=== PATIENT | female | born 1970 | race Caucasian/White ===

== ENCOUNTER → 2016-09-23 | Outpatient (CLI) | payer OTHER ==
[~2016-09-23] VITALS: Ht 157.5 cm; Wt 76.0 kg
[~2016-09-23] MED LIST: AMBIEN 10 MG TA10 MG PO; APAP650 PO; ATIVAN1 MG; ATIVAN1 MG PO; B-COMPLEX-VITA1 EACH PO; BACLOFEN; BACLOFEN 10MG T10 M1 PO; BLOOD PRESSURE MED; BUTALB-APAP-CA1 EACH PO; BUTALBITAL COM1 EAC1 PO; CALCIUM OYSTER500 MG; CIPROFLOXACIN500 M1 PO; CLONAZEPAM; CLONAZEPAM 0.50.5 M1 PO; CLONAZEPAM 1 MG1 M1 PO; COLACE100 MG PO; CYMBALTA30 MG PO; CYMBALTA60 MG PO; ESTRACE2 MG PO; ESTRODIAL PO; FENTANYL; FIORICET-COD 51 EACH PO; HYDROCODON-ACE1 EAC5 PO; INDERAL60 MG PO; KEFLEX500 MG PO; LORAZEPAM 1 MG T1 M1 PO; MAGNESIUM GLUC500 M1 PO; MULTI-VITAMIN1 EAC2 PO; MULTIVITAMINS PO; NAPROSYN500 MG PO; NEURONTIN 400M400 M2 PO; NORFLEX100 MG; ONE-A-DAY WOMENS; OXYCODONE-ACET1 EACH PO; OXYCONTIN10 M1; PERCOCET 5-3251 EACH PO; PHILLIPS' LAXA100 MG; PREDNISONE 20 M20 MG PO; PRILOSEC 20 MG20 MG PO; SKELAXIN 800 M800 M1; SYMBYAX 6-25 M1 EACH; TIZANIDINE HCL2 M1 PO; TOPAMAX 100 MG100 MG PO; TOPAMAX50 MG; TOPROL XL25 MG PO; TRAMADOL 50 MG50 MG; TRAMADOL PO; ULTRACET TABLE1 EACH; VALIUM2 MG PO; VALIUM5 MG; VALIUM5 MG PO; VICODIN 5-5001 EACH; VICODIN PO; VITAMIN D-32000 UNIT PO; VITAMINC500 PO; WOMEN'S MULTI1 EACH; ZANAFLEX4 M1; ZOFRAN ODT4 MG PO; ZOLOFT100 MG; testosterone cream
[2016-09-23 13:46] VITALS: BP 140/101
== END | disposition home or self-care (01) ==
LOC: PAIN 06:46
DX: G80.1 Spastic diplegic cerebral palsy (principal); M54.12 Radiculopathy, cervical region; G44.89 Other headache syndrome; Z98.890 Other specified postprocedural states; V89.2XXD Person injured in unspecified motor-vehicle accident, traffic, subsequent encounter

== ENCOUNTER → 2016-10-21 | Outpatient (CLI) | payer OTHER ==
[~2016-10-21] VITALS: Ht 157.5 cm; Wt 74.8 kg
--- NOTE | ~2016-10-21 | HPC ---
[facility] [employer] [place] [address] PAIN MANAGEMENT CONSULTATION Name: SUJEY WILLIAM Room #: REG Benjie Pagan#: [id number] Admission: 10/21/16 Attend Phys: Clifford Kunz MD Discharge: Date of : 72 Report #: [id number] THIS REPORT FOR: //name// CC: Aurelio Kunz DATE OF SERVICE: 10/21/2016 Follow up visit for cervical radiculopathy as well as spasticity and movement disorder related to cerebral palsy. The delightful patient returns to pain clinic today with severe pain, scoring it as an 8-9/10. Pain is in her neck, radiates through her right shoulder and down into her arms, right worse than left. Pain follows a C6-C7 distribution. We ordered an MRI, but because of significant motion artifact due to her movement disorder, it has not been all that helpful. It does show that she has some changes associated with her anterior cervical diskectomy and fusion. We discussed that if she had not responded and improved, we can proceed with a cervical epidural injection today under fluoroscopic guidance. In addition to the injection, she has been taking some Fioricet at night, this has helped quite a bit with her sleep. I felt the caffeine in Fioricet might keep her up, but it does not seem to have done so and the analgesia has been gratefully accepted. We will continue her on this low dose of medication. PHYSICAL EXAMINATION: This is a delightful 46-year-old pleasant and always outgoing. Her movement disorder is immediately evident with neck and arms and lower extremities. Blood pressure 123/83, heart rate is 91, and BMI is 30.1. Neck is painful in all range of motion, flexion, extension, rotation, and wpgx-jx-lfre tilt. She has tenderness located along the spine and there is a positive Spurling's into the right arm. Deep tendon reflexes are diminished throughout the upper and lower extremities. There is no hyperreflexia. Weakness is noted in the right arm deltoid and biceps function consistent with C5. IMPRESSION: 1. Cervical radiculopathy, C6 distribution bilateral, worse on the right than the left. 2. 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 Management of intrathecal infusion pump. She is not due for a refill at this time, but I did interrogate her pump and we will consider adding additional fentanyl in a followup visit. PROCEDURE: Cervical epidural injection under fluoroscopic guidance. [address] [address] PAIN MANAGEMENT CONSULTATION Name: SUJEY WILLIAM Room #: REG CLI Latasha#: [id number] Admission: 10/21/16 Attend Phys: Clifford Kunz MD Discharge: Date of : 72 Report #: [id number] PROCEDURE NOTE: She was taken to the fluoroscopic suite, placed prone, skin prepped with ChloraPrep. Skin anesthetized over the C6-C7 interspace. A 20-gauge Tuohy epidural needle was advanced in the epidural space in the first attempt with loss of resistance. There was no blood or CSF aspirated. 1 mL of Omnipaque injected with good epidurogram achieved. This was then followed by 4 mL of 0.5% lidocaine mixed with 80 mg triamcinolone. She tolerated the procedure well and was observed in recovery room for about 30 minutes before discharge. There were no complications. Follow up visit planned as needed. I have ordered an early refill for her intrathecal infusion pump and an increase the fentanyl from her current concentration of 225 mcg added to 1000 mcg of baclofen. As we add this additional medication, we will increase the fentanyl dose by roughly 25%. Hopefully, this will also provide additional relief for her neck pain. <ELECTRONICALLY SIGNED> By: Clifford Kunz MD 10/25/16 1724 1627 1747 Clifford Kunz MD /nt
[2016-10-21 13:22] VITALS: BP 123/86
== END | disposition home or self-care (01) ==
LOC: PAIN 11:11
DX: M54.12 Radiculopathy, cervical region (principal); G80.1 Spastic diplegic cerebral palsy; Z88.8 Allergy status to other drugs, medicaments and biological substances; Z98.890 Other specified postprocedural states

== ENCOUNTER → 2016-11-04 | Outpatient (CLI) | payer OTHER ==
[~2016-11-04] VITALS: Ht 157.5 cm; Wt 73.8 kg
--- NOTE | ~2016-11-04 | HPC ---
[facility] [address] [place] [address] PAIN MANAGEMENT CONSULTATION Name: SUJEY WILLIAM Room #: REG [facility]#: [id number] Admission: 11/04/16 Attend Phys: Clifford Kunz MD Discharge: Date of : 72 Report #: [id number] THIS REPORT FOR: //name// CC: Aurelio Kunz DATE OF SERVICE: 11/04/2016 DATE OF REGISTRATION: 11/04/2016 Followup visit for chronic intractable pain and spasticity. The patient was recently in the clinic and agreed to increase her fentanyl and her intrathecal infusion pump. I have done so by ordering 20 mL of higher concentration of fentanyl along with her baclofen at the same dose. This will essentially raise her dose by about 15% in fentanyl and we will refill her intrathecal infusion pump. Procedure refill was discussed with the patient and how we would recalculate this and she is pleased that we are doing so and anxious to go forward. IMPRESSION: Spasticity and chronic intractable back pain. PROCEDURE: Refill and readjust medication, reprogramming session. Skin was prepped with ChloraPrep. Skin anesthetized and a 22-gauge non-coring needle advanced in the intrathecal pump. Old medication was removed. A 24 mL was removed and I decanted 4 mL to leave a total volume of 20 mL. This was then mixed with 20 mL of new medication with a higher concentration of fentanyl. The resulting concentrations are baclofen 1000 mcg/mL, fentanyl 275 mcg/mL. Reprogramming of the same dose of baclofen at 350 mg per day. We will increase her fentanyl by about 15%. Bridge bolus was performed as well. She will get her new medication in about 1-1/2 days. No new medications were ordered. Reprogramming session copy was provided to the patient including explanation of her bridge bolus. Her next refill is scheduled for 02/17/2017 or sooner. By: 1513 1530 Clifford Kunz MD /nt
[2016-11-04 14:00] VITALS: BP 134/89
== END | disposition home or self-care (01) ==
LOC: PAIN 07:11
DX: Z45.1 Encounter for adjustment and management of infusion pump (principal); G89.29 Other chronic pain

== ENCOUNTER → 2017-05-30 | Outpatient (CLI) | payer OTHER ==
[~2017-05-30] VITALS: Ht 157.5 cm; Wt 76.3 kg
[~2017-05-30] MED LIST changes: +EFFEXOR XR75 MG PO; +IBUPROFEN 200200 M1 PO; +MIRALAX17 GM PO; +SINGULAIR 10 MG10 M1 PO; +ZANTAC 150MG T150 MG PO
--- NOTE | ~2017-05-30 | HPC ---
[facility] [place] [address] PAIN MANAGEMENT CONSULTATION Name: SUJEY WILLIAM Room #: REG RADHA Pagan#: [id number] Admission: 05/30/17 Attend Phys: Kwan Mitchell DO Discharge: Date of : 71 Report #: [id number] THIS REPORT FOR: //name// CC: Aurelio Mitchell The patient is a very pleasant 47-year-old female being treated for spasticity secondary to cerebral palsy requiring intrathecal pump management. She was last seen in the pain clinic on 02/10/2017. She is a patient of Dr. Clifford Kunz. She has a 40 mL intrathe[address] pump in place. I am seeing her today as her pump has started to alarm. Unfortunately, she presents to the pain clinic today stating that she feels like she is going through some withdrawal noting some increase in spasticity in her neck and shoulder pain. Rates the pain as a 7 on a VAS. PHYSICAL EXAMINATION: Otherwise shows a 47-year-old female with CP. BMI is 30.8 kilograms per meter squared. Vital signs stable as noted in the EMR. Does have a little choreoathetoid movement of her neck. Subjective spasticity in neck, shoulder and arms. Uses a walker for balance. Discussion with the patient today about therapeutic options. We interrogated her pump, which showed that she should have 0.9 mL of intrathecal fluid left. I was concerned that the pump had defaulted to its basal rate. It does not appear this is the case; however, we do note that with the [employer]onic intrathecal pumps they do tend to deliver a little lower rate near the end of their fill cycle. With this histories in mind, we elected to refill the pump today and not change the rate if, however, in 24-48 hours she still has some symptoms of increased spasticity and neck and shoulder tightness, we will have her follow up with Dr. Clifford Kunz for consideration for intrathecal pump adjustment. Last time on 02/10/2017, pump was refilled, the concentrations were changed such that the infusate of baclofen remained the same at approximately 350 mcg a day, but the fentanyl was increased somewhat from 91.6 to 104.91 mcg a day. Today, the intrathecal pump was refilled by the nurse. Curiously while we were expecting 0.9 mL of injectate, we did get 5.5 mL of injectate back. Again historically with the Medtronic pumps, we do tend to see that they "under deliver "a little bit and we do typically see a little more residual fluid. Nonetheless, the pump was refilled in a sterile manner using the Med[employer]onic refill kit. Frequent aspiration showed easy return of the injectate. After all 40 mL (39.[address] Clifford Kunz's request) was injected into the intrathecal pump. The needle was removed, the area was cleansed and Band-Aid applied. Pump was reprogrammed to deliver the current infusate at 349.7 mcg of baclofen a day and 104.9 mcg of fentanyl a day. The new refill date is now 09/14/2017. The patient was discharged in good and stable condition. Follow up with [address] [address] PAIN MANAGEMENT CONSULTATION Name: SUJEY WILLIAM Room #: REG [facility] Latasha#: [id number] Admission: 05/30/17 Attend Phys: Vincent G. Stephen, DO Discharge: Date of : 72 Report #: [id number] Ze in 2 days if intrathecal pump adjustment is required. Otherwise, cancel the appointment and follow up simply as needed for intrathecal pump refill. <ELECTRONICALLY SIGNED> By: Kwan Mitchell DO 06/01/17 0820 1637 2344 Kwan Mitchell DO /nt
[2017-05-30 14:33] VITALS: BP 140/66
== END | disposition home or self-care (01) ==
LOC: PAIN 09:39
DX: Z45.1 Encounter for adjustment and management of infusion pump (principal); G80.1 Spastic diplegic cerebral palsy; Z88.6 Allergy status to analgesic agent; Z79.899 Other long term (current) drug therapy

== ENCOUNTER → 2017-08-01 | Outpatient (CLI) | payer OTHER ==
[~2017-08-01] VITALS: Ht 157.5 cm; Wt 72.1 kg
[~2017-08-01] MED LIST changes: -SINGULAIR 10 MG10 M1 PO; -ZANTAC 150MG T150 MG PO
--- NOTE | ~2017-08-01 | HPC ---
[facility] [place] [address] PAIN MANAGEMENT CONSULTATION Name: SUJEY WILLIAM [id number] Admission: 08/01/17 Attend Phys: Clifford Kunz MD Discharge: Date of : 72 Report #: [id number] THIS REPORT FOR: //name// CC: Aurelio Kunz DATE OF SERVICE: 08/01/2017 The patient returns to pain clinic today complaining of lumbar radiculopathy. Pain is in her back, radiates into her left hip and down into her left thigh and left foot, follows an L4-L5 distribution. She has had epidural injections in the past with good improvement. She also manages with an intrathecal pump. It contains Lioresal and fentanyl. I have agreed to provide her with an increase in her infusion today and bring her back to the pain clinic in 2 days for an epidural injection. MEDICATIONS: Reviewed and reconciled from the electronic medical record. PHYSICAL EXAMINATION: She is pleasant and outgoing. Blood pressure is 142/70, heart rate 81, respirations 14. Her BMI is 29.1. She is able to move independently and walks with a spastic gait. She has good flexion, extension, rotation, and ozfg-vm-lzij tilt with modest extension, reproduction of pain down into the left leg following the L4-L5 distribution. No focal weakness is noted in lower extremities. Sensation is intact. IMPRESSION: Low back pain with radiculopathy following an L4-L5 distribution. RECOMMENDATION: Epidural steroid injection under fluoroscopic guidance. We cannot perform the injection today, but we will see her back in the pain clinic for treatment in 2 days. <ELECTRONICALLY SIGNED> By: Clifford Kunz MD 08/15/17 1711 1721 2240 Clifford Kunz MD /nt
[2017-08-01 14:59] VITALS: BP 142/70
== END ==
LOC: PAIN 06:16
DX: M54.16 Radiculopathy, lumbar region (principal)

== ENCOUNTER → 2017-08-08 | Outpatient (CLI) | payer OTHER ==
[~2017-08-08] VITALS: Ht 157.5 cm; Wt 72.1 kg
--- NOTE | ~2017-08-08 | HPC ---
[facility] [place] [address] PAIN MANAGEMENT CONSULTATION Name: SUJEY WILLIAM Room #: REG [facility] Luciano.#: [id number] Admission: 08/08/17 Attend Phys: Clifford Kunz MD Discharge: Date of : 72 Report #: [id number] THIS REPORT FOR: //name// CC: Aurelio Kunz DATE OF SERVICE: 08/08/2017 Followup visit for lumbar radiculopathy. The patient was seen 1 week ago and she is here today for the epidural injection discuss. She continues to complain of pain today that is fairly severe radiating down the posterior lateral aspect of both legs, worse on the left. Follows an L4-L5 distribution. The patient's history is well documented throughout the record. She has had previous C4-C5 surgery. She has cerebral palsy and spasticity, which has been treated by intrathecal therapy. I have been asked to assist in the management of that condition. She has chronic back pain some of which is myofascial. This pain is clearly radicular in its distribution. PHYSICAL EXAMINATION: VITAL SIGNS: Blood pressure is 138/96, heart rate 95, respirations 20. She moves from sitting to standing. MUSCULOSKELETAL: She walks with a spastic gait. She has positive straight leg raising bilaterally, worse on the left than the right. It follows the anterolateral thigh and the L4-L5 distribution. There is no focal weakness noted throughout the lower extremities and sensation is normal. IMPRESSION: Chronic low back pain with radiculopathy, bilateral, now L4-L5, worse on the left. PROCEDURE: Epidural steroid injection under fluoroscopic guidance. DESCRIPTION OF PROCEDURE: She was taken to the fluoroscopic suite for treatment, placed prone, skin prepped with ChloraPrep. Skin anesthetized over L4-L5. A 20-gauge Tuohy epidural needle was advanced easily into the epidural space with loss of resistance technique. There was no blood or CSF aspirated. 1 mL of Omnipaque was injected. Good spread of dye observed into the epidural space. This was followed by 3 mL of 0.5% lidocaine with 80 mg of triamcinolone. She tolerated the procedure well. She was observed for 45 minutes and then, she was discharged. She will be followed up in the pain clinic on an as needed basis for management of her intrathecal medications. No medications were written for oral use today. [address] [address] PAIN MANAGEMENT CONSULTATION Name: SUJEY WILLIAM Room #: REG CLBenjie Pagan#: [id number] Admission: 08/08/17 Attend Phys: Clifford Kunz MD Discharge: Date of : 72 Report #: [id number] Pain score was 0 at discharge. By: 1612 2355 Clifford Kunz MD /nt
[2017-08-08 14:37] VITALS: BP 138/96
== END | disposition home or self-care (01) ==
LOC: PAIN 07:29
DX: M54.16 Radiculopathy, lumbar region (principal); G89.29 Other chronic pain; G80.9 Cerebral palsy, unspecified; Z98.890 Other specified postprocedural states; Z88.8 Allergy status to other drugs, medicaments and biological substances; Z79.899 Other long term (current) drug therapy

== ENCOUNTER → 2017-09-08 | Outpatient (CLI) | payer OTHER ==
[~2017-09-08] VITALS: Ht 157.5 cm; Wt 74.5 kg
--- NOTE | ~2017-09-08 | HPC ---
[facility] [place] [place] [address] PAIN MANAGEMENT CONSULTATION Name: SUJEY WILLIAM Room #: REG [facility] Luciano.#: [id number] Admission: 09/08/17 Attend Phys: Clifford Kunz MD Discharge: Date of : 72 Report #: [id number] THIS REPORT FOR: //name// CC: Aurelio Kunz DATE OF SERVICE: 09/08/2017 REASON FOR VISIT: Followup visit for management of intrathecal baclofen pump. HISTORY OF PRESENT ILLNESS: The patient is here today with her for refill of her intrathecal pump. Epidural injection provided good relief, provided at her last visit. Her intrathecal pump is Lioresal and fentanyl. She has an ALFREDO of 13 months and will need to have the pump replaced sometime before about May of next year. Today, she reports her pain is 4/10 across her hip and buttocks, but improved. She complains of chronic spasticity, some fatigue and weakness. PHYSICAL EXAMINATION: GENERAL: She is a delightful 47-year-old full of energy and humor. VITAL SIGNS: Her blood pressure is 137/75, heart rate 96, respirations 20, and BMI is 30. She has spasticity of the lower extremities, but this is fairly well controlled with the intrathecal pump. Straight leg raising today is negative. IMPRESSION: 1. Chronic low back pain with radiculopathy, improved following epidural injection. 2. Spasticity secondary to cerebral palsy. PROCEDURE: Refill and reprogram of intrathecal infusion pump. Skin was prepped with ChloraPrep. Skin was anesthetized. A 22-gauge non-coring needle advanced into the intrathecal pump. Old medication removed and discarded. Pump refilled with baclofen and fentanyl and a reprogramming session performed. Her current daily dose is baclofen 380 mcg, fentanyl 114 mcg. Her low reservoir alarm date is now 12/15/2017. We will see her before then. No oral medications were provided at today's visit. By: 1727 2235 Clifford Kunz MD /nt
[2017-09-08 14:40] VITALS: BP 137/75
== END | disposition home or self-care (01) ==
LOC: PAIN 07:07
DX: Z45.1 Encounter for adjustment and management of infusion pump (principal)

== ENCOUNTER → 2018-02-09 | Outpatient (CLI) | payer OTHER ==
[~2018-02-09] VITALS: Ht 152.4 cm; Wt 69.4 kg
[~2018-02-09] MED LIST changes: +BACLOFEN 10MG T10 MG PO; +ESTRADIOL1 EAC1 TRANSDERM; +SINGULAIR 10 MG10 M1 PO; +ZANTAC 150MG T150 MG PO
--- NOTE | ~2018-02-09 | HPC ---
[facility] [address] [facility] [place] [address] PAIN MANAGEMENT CONSULTATION Name: SUJEY WILLIAM Room #: REG [facility] [id number] Admission: 02/09/18 Attend Phys: Clifford Kunz MD Discharge: Date of : 72 Report #: [id number] THIS REPORT FOR: //name// CC: Aurelio Kunz DATE OF SERVICE: 02/09/2018 CHIEF COMPLAINT: Followup visit for increased spasticity. The patient is a longstanding patient with an intrathecal baclofen pump with a small amount of morphine. I received a text message from one of the nurses last night about 8:00 that the patient had called her, was having increasing spasticity that was difficult to manage. This is atypical for her. She did not have oral baclofen or other medication. She did not feel it was bad enough to come to the hospital that evening, but I arranged for her to be added to the schedule today. Today, she presents to clinic with increase in her usual spasticity and also complains of hypersensitivity as well as a new rash. She is not febrile. She does not have other symptoms of infection. She has no cough. No abdominal discomfort, no changes in her bowel function. Bowel and bladder is normal. There are no open wounds. PHYSICAL EXAMINATION: Her blood pressure is 122/65, heart rate is elevated at 122, respirations 14. She is afebrile. BMI is 29.9. She has lost some weight. This is purposeful. She has a slight raised rash that is bilateral across her chest and into the neck bilaterally. It does not look like a shingles rash by any means. She does not appear to be febrile or toxic. Throat is clear. She has significant increase in spasticity noted and a tremor in her upper and lower extremities. This is typical for her. She scores her discomfort as a 10/10. IMPRESSION: 1. Spasticity secondary to cerebral palsy. 2. Exacerbation of symptoms with new rash and hypersensitivity. 3. Chronic low back pain with radiculopathy. 4. Management of intrathecal infusion pump. RECOMMENDATION: I suspect that this may have some infectious etiology. Perhaps a virus or some other infection could have triggered some of these symptoms, which are common in patients with spasticity and exacerbations often occur in the face of a new infectious process or other medical condition. She is not presenting with any symptoms now to isolate this. I have recommended that she follow up with Dr. Ortiz, her primary care physician, perhaps for some blood work and urinalysis. [place] [address] PAIN MANAGEMENT CONSULTATION Name: SUJEY WILLIAM Room #: REG [facility].#: [id number] Admission: 02/09/18 Attend Phys: Clifford Kunz MD Discharge: Date of : 72 Report #: [id number] the clinic, but it would be easier for her to do that closer to home in their office and they are set up to do it. For symptom management today, I have given her prescription for oral baclofen 10 mg, which she can take every 8 hours to supplement her intrathecal pump. I have given her a small bolus of 25 mcg while in the office and we observed her for 30 minutes and there was some slight improvement in her spasticity. I therefore increased her pump by 10% to 400 mcg per day. Followup visit is planned just before Levi for refill of her intrathecal infusion pump. She is a good friend of all in the clinic and we will keep in touch with her by phone to make sure that she continues to improve. By: 1252 2240 Clifford Kunz MD /nt
[2018-02-09 11:27] VITALS: BP 122/65
== END | disposition home or self-care (01) ==
LOC: PAIN 08:15
DX: Z45.1 Encounter for adjustment and management of infusion pump (principal); R25.2 Cramp and spasm; M54.10 Radiculopathy, site unspecified; G89.29 Other chronic pain; Z88.8 Allergy status to other drugs, medicaments and biological substances; Z79.899 Other long term (current) drug therapy

== ENCOUNTER → 2018-03-16 | Outpatient (CLI) | payer OTHER ==
[~2018-03-16] VITALS: Ht 152.4 cm; Wt 65.3 kg
[~2018-03-16] MED LIST changes: +ESTRADIOL 1 MG T1 M1 PO
--- NOTE | ~2018-03-16 | HPC ---
[facility] [place] [address] PAIN MANAGEMENT CONSULTATION Name: SUJEY WILLIAM Room #: REG RADHA Pagan#: [id number] Admission: 03/16/18 Attend Phys: Clifford Kunz MD Discharge: Date of : 72 Report #: [id number] THIS REPORT FOR: //name// CC: JANAE Kunz DATE OF SERVICE: 03/16/2018 Followup visit for management of intrathecal infusion pump. The patient is here today for a refill. She is feeling very good and this is an up-day for her. She has got a lot of energy and has for the last week or so. She has lost 9 pounds in part by dieting, but not dieting aggressively so. She is both happy that she has lost weight and feels well, but also expressed some concern about the degree that she had lost weight. I told her we would watch it carefully there was no evidence that her weight loss is pathologic. Pain score is 1. Spasticity score is reduced. She has been using the p.r.n. baclofen ordered at last visit. PHYSICAL EXAMINATION: Blood pressure 122/56, heart rate 87, BMI 28.1. She is energetic, upbeat and positive. She has dysarthric speech and mild spasticity. IMPRESSION: 1. Spasticity secondary to cerebral palsy. 2. Chronic low back pain with radiculopathy. 3. Management of intrathecal infusion pump. PROCEDURE: Refill and reprogramming. Skin prepped with ChloraPrep and anesthetized the skin. A 22-gauge non-core needle advanced into the pump and old medication removed and discarded per protocol. Medication baclofen 1000 mcg/mL and fentanyl 300 mcg/mL was then injected into the pump using a barbotage technique. Needle was removed. A reprogramming session was performed. She will require pump replacement sometime in the next 6 months and we have sent a written order to Dr. Mina Jones's office to replace the pump, he originally placed her pump several years ago. If they are to replace the pump before the next refill, it would before 06/17/2018. Her ALFREDO is 6 months. Daily dose will be baclofen 400 mcg, fentanyl 120 mcg per day. Followup visit scheduled after the new pump is placed. By: [id number] Clifford Kunz MD /nt
[2018-03-16 12:39] VITALS: BP 122/56
== END | disposition home or self-care (01) ==
LOC: PAIN 08:44
DX: Z45.1 Encounter for adjustment and management of infusion pump (principal); R25.2 Cramp and spasm; G89.29 Other chronic pain; M54.16 Radiculopathy, lumbar region; Z88.8 Allergy status to other drugs, medicaments and biological substances; Z79.899 Other long term (current) drug therapy

== ENCOUNTER → 2018-10-12 | Outpatient (CLI) | payer OTHER ==
[~2018-10-12] VITALS: Ht 157.5 cm; Wt 66.2 kg
[~2018-10-12] MED LIST changes: +NEURONTIN600 MG PO
--- NOTE | ~2018-10-12 | HPC ---
[facility] [place] [address] PAIN MANAGEMENT CONSULTATION Name: SUJEY WILLIAM Room #: REG [facility] Edna.#: [id number] Admission: 10/12/18 ������������������ Attend Phys: Clifford Kunz MD Discharge: ������������������ Date of : 72 Report #: [id number] THIS REPORT FOR: //name// CC: JANAE Kunz DATE OF SERVICE: 10/12/2018 Followup visit today for cervical pain, radiating pain through the arms bilaterally with a history of anterior cervical diskectomy and fusion. The patient also has symptoms of carpal tunnel syndrome confirmed by EMG. The patient returns to pain clinic today and her symptoms have really progressed. She has had an EMG, which suggests carpal tunnel syndrome as a possible cause. She was treated in the past for similar symptoms successfully with an epidural steroid injection performed at the level of C7-T1. I have agreed to provide her with an injection today for symptomatic relief and if not improved, we will proceed on with treatment for bilateral carpal tunnel syndrome. She has recently had her intrathecal pump adjusted and does not need it today. PHYSICAL EXAMINATION: GENERAL: She is in a fair amount of pain scoring at 9/10. She is very uncomfortable, which has dampened her normally ebullient personality. VITAL SIGNS: She is 5 feet 2 inches, 146 pounds, BMI is 26.7. Blood pressure 124/64, heart rate is 75, respirations 14. MUSCULOSKELETAL: Reveals tenderness of the neck. She has pain with forward flexion, extension and rotation. Extension of the neck reproduces symptoms down into her arms. She has a scar on the left neck from an anterior cervical diskectomy and fusion. She has some weakness with arm extension and the deltoids are modestly weak. There is triceps weakness greater in comparison to her biceps. Brand Activation Manager strength is diminished bilaterally. There is a positive Tinel sign. Sensation is diminished throughout the forearm and into the hands. The hand follows a median distribution and is consistent with her coexisting carpal tunnel syndrome. Deep tendon reflexes in the lower extremities are irregular and 2+ at the knees and 2+ at the ankles bilaterally. IMPRESSION: 1. Chronic cervicalgia with radiculopathy, status post anterior cervical diskectomy and fusion. She has responded nicely in the past with epidural steroid injection for similar pain. 2. EMG-confirmed bilateral carpal tunnel syndrome. This may need to be pursued depending on results to epidural steroid injection today. [address] [address] PAIN MANAGEMENT CONSULTATION Name: SUJEY WILLIAM Room #: REG [facility] Latasha#: [id number] Admission: 10/12/18 ������������������ Attend Phys: Clifford Kunz MD Discharge: ������������������ Date of : 72 Report #: [id number] PROCEDURE: Epidural steroid injection under fluoroscopic guidance. DESCRIPTION OF PROCEDURE: She was taken to fluoroscopic suite for treatment. She was placed prone. The skin was prepped with ChloraPrep. Skin anesthetized over the C7-T1 interspace. A 20-gauge Tuohy epidural needle was advanced in the epidural space with loss of resistance technique. There was no blood or CSF aspirated. A 1 mL of Omnipaque was injected. Good spread of dye observed in the epidural space, was followed by 3 mL of 0.5% lidocaine mixed with 80 mg of triamcinolone. She tolerated the procedure well. She was observed in recovery room for a short time before discharge. Pain score had been diminished from 9 to 6. I have told her that if she is not improved within 1-2 weeks, we will refer her for treatment of carpal tunnel syndrome. ��������������������������������������������� ���������������������������������������� By: ��������������������������������������������� [id number] Clifford Kunz MD /nt
[2018-10-12 14:55] VITALS: BP 124/64
--- NOTE | 2018-10-12 15:13 | NUR ---
Pain Clinic Assessment: 1. History of Osteoarthritis: Not Applicable History of Rheumatoid Arthritis: Not Applicable 2. Height: 5 ft. 2 in. 157.5 cm. Weight: 146.0 lb. oz. 66.225 kg. Patient's BMI: 26.7 3. Vital Signs: BP: 124/64 Pulse: 75 Resp: 14 Temp: 02 Sat: 98 ECG Mon: 4. Pain Intensity: 9 5. Fall Risk: Dizziness: N Needs help standing or walking: Y Fallen in the last 3 months: N Fall risk comments: has been falling but no dr 6. Patient on Blood Thinner: None 7. History of Hypertension: N 8. Opioid Therapy greater than 6 weeks: N Opiate Contract Signed: 9. Risk Assessment Tool Provided: mod-4 10. Functional Assessment Tool: 58/70 11. Recreational Drug Use: Never Drug Type: Tobacco Use: Never Smoker Tobacco Type: Amount or Packs/day: How Many Years: Alcohol Use: No Frequency: Quant:
== END | disposition home or self-care (01) ==
LOC: PAIN 09-14 09:30
DX: M54.12 Radiculopathy, cervical region (principal); G89.29 Other chronic pain; Z98.890 Other specified postprocedural states; Z88.8 Allergy status to other drugs, medicaments and biological substances; Z79.899 Other long term (current) drug therapy; Z79.891 Long term (current) use of opiate analgesic

== ENCOUNTER → 2018-11-14 | Outpatient (CLI) | payer OTHER ==
[~2018-11-14] VITALS: Ht 157.5 cm; Wt 66.3 kg
--- NOTE | ~2018-11-14 | HPC ---
[facility] [place] [address] PAIN MANAGEMENT CONSULTATION Name: SUJEY WILLIAM Room #: REG [facility]#: [id number] Admission: 11/14/18 Attend Phys: Clifford Kunz MD Discharge: Date of : 72 Report #: [id number] THIS REPORT FOR: //name// CC: Aurelio Kunz DATE OF SERVICE: 11/14/2018 Followup visit for spasticity and management of intrathecal infusion pump. Sujey returns to pain clinic here for refill of her intrathecal infusion pump. It is infusing baclofen and is doing well. Her pump refills typically last about 3 months. She recently had a cervical epidural injection, which went well. There were no complications and she has had significant improvement in her hands despite the fact that her EMG showed carpal tunnel syndrome. She has some pain in her shoulders. It comes intermittently. There may be a bit of radiculopathy as well. We will monitor this carefully and if necessary may consider a repeat epidural in the future. PHYSICAL EXAMINATION: GENERAL: She is a pleasant female, alert and oriented, always bringing sunshine into the office. She has no other complaints. VITAL SIGNS: Blood pressure is 138/84, heart rate is 80. Pump is in the right lower quadrant, nontender. IMPRESSION: Spasticity related to cerebral palsy. PROCEDURE: Refill and reprogramming of intrathecal infusion pump. Skin was prepped with ChloraPrep and a 22-gauge non-coring needle advanced into the intrathecal pump. Old medication was removed and discarded per protocol and pump was refilled and reprogrammed. There were no complications. Plan is for refill the pump in September. We will see her then if not before. By: [id number] Clifford Kunz MD /nt
[2018-11-14 11:15] VITALS: BP 130/92
--- NOTE | 2018-11-14 11:19 | NUR ---
Pain Clinic Assessment: 1. History of Osteoarthritis: Not Applicable History of Rheumatoid Arthritis: Not Applicable 2. Height: 5 ft. 2 in. 157.5 cm. Weight: 146.2 lb. oz. 66.316 kg. Patient's BMI: 26.7 3. Vital Signs: BP: 130/92 Pulse: 92 Resp: 16 Temp: 02 Sat: 99 ECG Mon: 4. Pain Intensity: 4 5. Fall Risk: Dizziness: N Needs help standing or walking: N Fallen in the last 3 months: N Fall risk comments: has been falling but no dr 6. Patient on Blood Thinner: None 7. History of Hypertension: N 8. Opioid Therapy greater than 6 weeks: N Opiate Contract Signed: 9. Risk Assessment Tool Provided: mod-4 10. Functional Assessment Tool: 58/70 11. Recreational Drug Use: Never Drug Type: Tobacco Use: Never Smoker Tobacco Type: Amount or Packs/day: How Many Years: Alcohol Use: No Frequency: Quant:
== END | disposition home or self-care (01) ==
LOC: PAIN 06:52
DX: Z45.1 Encounter for adjustment and management of infusion pump (principal); G80.9 Cerebral palsy, unspecified; G89.29 Other chronic pain; Z88.8 Allergy status to other drugs, medicaments and biological substances; Z79.899 Other long term (current) drug therapy; Z98.890 Other specified postprocedural states

== ENCOUNTER → 2019-01-01 | Outpatient (CLI) | payer OTHER ==
[~2019-01-01] VITALS: Ht 157.5 cm; Wt 67.3 kg
[2019-01-01 14:34] VITALS: BP 106/67
--- NOTE | 2019-01-01 14:48 | NUR ---
Pain Clinic Assessment: 1. History of Osteoarthritis: Not Applicable History of Rheumatoid Arthritis: Not Applicable 2. Height: 5 ft. 2 in. 157.5 cm. Weight: 148.4 lb. oz. 67.314 kg. Patient's BMI: 27.1 3. Vital Signs: BP: 106/67 Pulse: 85 Resp: 14 Temp: 02 Sat: 100 ECG Mon: 4. Pain Intensity: 9 5. Fall Risk: Dizziness: N Needs help standing or walking: N Fallen in the last 3 months: N Fall risk comments: has been falling but no dr 6. Patient on Blood Thinner: None 7. History of Hypertension: N 8. Opioid Therapy greater than 6 weeks: N Opiate Contract Signed: 9. Risk Assessment Tool Provided: mod-4 10. Functional Assessment Tool: 58/70 11. Recreational Drug Use: Never Drug Type: Tobacco Use: Never Smoker Tobacco Type: Amount or Packs/day: How Many Years: Alcohol Use: No Frequency: Quant:
--- NOTE | 2019-01-04 16:52 | HPC ---
[facility] [address] [address] PAIN MANAGEMENT CONSULTATION Name: SUJEY WILLIAM Room #: REG [facility].#: [id number] Admission: 01/01/19 Attend Phys: Clifford Kunz MD Discharge: Date of : 72 Report #: [id number] THIS REPORT FOR: //name// CC: Aurelio Kunz DATE OF SERVICE: 01/01/2019 HISTORY: Sujey returns to pain clinic today with cervical radiculopathy. She has spasticity, constant movement of her neck may play a role. She has an anterior cervical diskectomy and fusion. Her pain radiates to her arm down into her hand. It is consistent with a C6-C7 radicular condition. She had a nice response to previous cervical epidural provided in September. She has spasticity in her constant movement of the head, makes it very careful and needle placement. I had no difficulty in performing her last two injections. We reviewed the procedure, potential risks and benefits. Otherwise, she is doing well. Her spasticity related to cerebral palsy has been controlled with her intrathecal pump fairly effectively. PHYSICAL EXAMINATION: GENERAL: A pleasant 48-year-old. Blood pressure is 106/67, heart rate 85, respirations 14. She is outgoing and jovial. HEENT: Pupils are equal, round, reactive to light. EOMs are intact. She has dysarthric speech. She has a constant spasticity and movement of her head, shoulders and arms. Her chest is clear, and her cardiac rhythm is regular. MUSCULOSKELETAL: Reveals a spastic gait and constant spastic movements. Tenderness in the neck. There is a small scar on the left from her anterior cervical diskectomy and fusion. Limited range of motion in cervical extension and rotation. She has a positive Spurling's. IMPRESSION: Cervical radiculopathy, status post anterior cervical diskectomy and fusion. RECOMMENDATIONS: Cervical epidural injection under fluoroscopic guidance. PROCEDURE: She was taken to fluoroscopic suite for procedure, placed prone, skin prepped with ChloraPrep. Skin was anesthetized over the C7-T1 interspace and a 20-gauge Tuohy epidural needle advanced first attempt in the epidural space with loss of resistance technique. There was no blood or CSF aspirated. A 1 mL of Omnipaque was injected. Good spread of dye was observed. It was then followed by 3 mL of 0.5% lidocaine mixed with 80 mg of triamcinolone. She tolerated the procedure well. She was observed for 30 minutes and discharged. [address] [address] PAIN MANAGEMENT CONSULTATION Name: SUJEY WILLIAM Room #: REG [facility]#: [id number] Admission: 01/01/19 Attend Phys: Clifford Kunz MD Discharge: Date of : 72 Report #: [id number] No medications were ordered on this visit. Followup visit is planned for pump management. <ELECTRONICALLY SIGNED> By: Clifford Kunz MD 01/04/19 1652 [id number] Clifford Kunz MD /vasquez
== END | disposition home or self-care (01) ==
LOC: PAIN 06:37
DX: M54.12 Radiculopathy, cervical region (principal); G89.29 Other chronic pain; Z98.890 Other specified postprocedural states; Z88.8 Allergy status to other drugs, medicaments and biological substances; Z79.899 Other long term (current) drug therapy

== ENCOUNTER → 2019-02-05 | Outpatient (CLI) | payer OTHER ==
[~2019-02-05] VITALS: Ht 157.5 cm; Wt 67.1 kg
[2019-02-05 11:09] VITALS: BP 109/66
--- NOTE | 2019-02-05 11:42 | NUR ---
Please add Pressure Ulcer Care Plan and Document on Pressure Wound Intervention!
--- NOTE | 2019-02-05 11:42 | NUR ---
Pain Clinic Assessment: 1. History of Osteoarthritis: Not Applicable History of Rheumatoid Arthritis: Not Applicable 2. Height: 5 ft. 2 in. 157.5 cm. Weight: 148.0 lb. oz. 67.132 kg. Patient's BMI: 27.1 3. Vital Signs: BP: 109/66 Pulse: 80 Resp: 16 Temp: 02 Sat: 100 ECG Mon: 4. Pain Intensity: 3 5. Fall Risk: Dizziness: Y Needs help standing or walking: N Fallen in the last 3 months: N Fall risk comments: has been falling but no dr 6. Patient on Blood Thinner: None 7. History of Hypertension: N 8. Opioid Therapy greater than 6 weeks: N Opiate Contract Signed: 9. Risk Assessment Tool Provided: mod-4 10. Functional Assessment Tool: 11. Recreational Drug Use: Never Drug Type: Tobacco Use: Never Smoker Tobacco Type: Amount or Packs/day: How Many Years: Alcohol Use: No Frequency: Quant:
== END | disposition home or self-care (01) ==
LOC: PAIN 06:53
DX: Z45.1 Encounter for adjustment and management of infusion pump (principal); G89.29 Other chronic pain; M54.5 Low back pain; G80.9 Cerebral palsy, unspecified; R25.2 Cramp and spasm; Z98.890 Other specified postprocedural states; Z88.8 Allergy status to other drugs, medicaments and biological substances; Z79.899 Other long term (current) drug therapy

== ENCOUNTER → 2019-03-15 | Outpatient (CLI) | payer OTHER ==
[~2019-03-15] VITALS: Ht 157.5 cm; Wt 67.2 kg
--- NOTE | ~2019-03-15 | HPC ---
[facility] [place] [place] [address] PAIN MANAGEMENT CONSULTATION Name: SUJEY WILLIAM Room #: REG [facility] EdnaReeceKimani#: [id number] Admission: 03/15/19 Attend Phys: Clifford Kunz MD Discharge: Date of : 72 Report #: [id number] THIS REPORT FOR: //name// CC: Clifford Baldwin DATE OF SERVICE: 03/15/2019 Followup visit for cervical radiculopathy. The patient returns to pain clinic today with cervical pain radiating into her arm. She has responded nicely to epidural injections. This would be her third injection of the year. She has also been dealing with a chronic problem with headaches. These headaches are constant frontal and occipital. They may be cervicogenic. She has had an anterior cervical diskectomy and fusion. She also has cerebral palsy and may have myofascial components creating tension throughout her head and also into her neck. The epidural may be helpful for that as well. PQRS: No history of osteoarthritis. She has got a BMI of 27, blood pressure 126/70, heart rate 72, pain intensity 5/10. She has not fallen in the last 5 months. No fall risk at this time. She denies use of blood thinners and is not hypertensive. I do not provide opioids for there is no opioid agreement. Despite her congenital disorder, her functional assessment score is low 18/70, reflecting her optimism. She denies use of tobacco or alcohol. PHYSICAL EXAMINATION: GENERAL: Pleasant female, tremor is noted throughout the entire body, neck, shoulders, arms and hands. HEENT: Pupils are equal, round, reactive to light. EOMs are intact. Mucous membranes are moist. NECK: Supple, but there is pain with neck flexion and extension, radiates up through the occiput. Neck extension also radiates arm pain into the left arm, worse than the right. Sensation is intact. Hand Blocker strength is diminished on the left compared to the right. Deep tendon reflexes are hyperreflexic. Deep reflexes are normal in lower extremities, 2+ at knees and ankles bilaterally. IMPRESSION: 1. Chronic cervicalgia. She has radiculopathy and is status post anterior cervical diskectomy and fusion. She is not a candidate for further epidural injections. 2. Cerebral palsy with spasticity. She has an intrathecal pump, which she manages well. 3. Intractable daily headache. [address] [address] PAIN MANAGEMENT CONSULTATION Name: SUJEY WILLIAM Room #: REG CLBenjie Pagan#: [id number] Admission: 03/15/19 Attend Phys: Clifford Kunz MD Discharge: Date of : 72 Report #: [id number] PLAN: We will see what happens after the epidural injection in regards to her headache. PROCEDURE: She was taken to fluoroscopic suite, placed prone, skin prepped with ChloraPrep. Skin was anesthetized over the C7-T1 interspace. A 20-gauge Tuohy epidural needle advanced at the first attempt in the epidural space with loss of resistance. There was no blood or CSF aspirated. A 1 mL of Omnipaque was injected. Good spread of dye observed into the epidural space. This was then followed by 3 mL of 0.5% lidocaine mixed with 80 mg of triamcinolone. She tolerated the procedure well and was observed for 45 minutes and discharged. Follow up as needed. Medication will be followed as an outpatient separate visit and I will refill her intrathecal pump as needed. Appointments will be scheduled through our pump desk. By: [id number] Clifford Kunz MD /nt
[2019-03-15 11:29] VITALS: BP 126/70
--- NOTE | 2019-03-15 11:37 | NUR ---
Pain Clinic Assessment: 1. History of Osteoarthritis: Not Applicable History of Rheumatoid Arthritis: Not Applicable 2. Height: 5 ft. 2 in. 157.5 cm. Weight: 148.2 lb. oz. 67.223 kg. Patient's BMI: 27.1 3. Vital Signs: BP: 126/70 Pulse: 72 Resp: 14 Temp: 02 Sat: 99 ECG Mon: 4. Pain Intensity: 5 5. Fall Risk: Dizziness: N Needs help standing or walking: N Fallen in the last 3 months: N Fall risk comments: has been falling but no dr 6. Patient on Blood Thinner: None 7. History of Hypertension: N 8. Opioid Therapy greater than 6 weeks: N Opiate Contract Signed: 9. Risk Assessment Tool Provided: mod-4 10. Functional Assessment Tool: 11. Recreational Drug Use: Never Drug Type: Tobacco Use: Never Smoker Tobacco Type: Amount or Packs/day: How Many Years: Alcohol Use: No Frequency: Quant:
== END | disposition home or self-care (01) ==
LOC: PAIN 07:01
DX: M54.12 Radiculopathy, cervical region (principal); G89.29 Other chronic pain; G80.9 Cerebral palsy, unspecified; G44.89 Other headache syndrome; Z98.890 Other specified postprocedural states; Z79.899 Other long term (current) drug therapy; Z88.8 Allergy status to other drugs, medicaments and biological substances

== ENCOUNTER → 2019-05-03 | Outpatient (CLI) | payer OTHER, SELFPAY ==
--- NOTE | ~2019-05-03 | HPC ---
[facility] [place] [address] PAIN MANAGEMENT CONSULTATION Name: SUJEY WILLIAM Room #: REG RAD[facility] Wolf.#: [id number] Admission: 05/03/19 Attend Phys: Clifford Kunz MD Discharge: Date of : 72 Report #: [id number] THIS REPORT FOR: cc: Clifford Baldwin MD, Richard C. MD Morgan, Richard L. MD ~ THIS REPORT FOR: //name// CC: Clifford Baldwin DATE OF SERVICE: 05/03/2019 Followup visit for management of an intrathecal pump and treatment of spasticity. The patient is here today for a refill of her intrathecal infusion pump. It contains baclofen and fentanyl. She reports that she is doing well. Her spasticity is under reasonable control. Her pain intensity is a 4/10 with the addition of the low dose fentanyl. I have treated her several times for cervical radiculopathy. Her symptoms are stable there, but she reports that the injections typically last no more than about 3 months. Her last cervical injection was on 03/15/2019. There have been no additional health concerns, injuries, or diagnoses since her last visit. PQRS report is negative for osteoarthritis. BMI is 28, blood pressure 111/42, heart rate 81, respirations 16, and pain intensity 4/10. She is not a fall risk. She is on no blood thinners nor does she have a history of hypertension. She is not on an opioid agreement and I do not provide oral opioids for her, only medication through her intrathecal pump. She is at moderate risk for addiction by the opioid risk tool, scoring 4. Her functional assessment score is quite good at 18/70. She denies use of tobacco and alcohol. PHYSICAL EXAMINATION: She is her usual ambulant up and outgoing self. She has marked movement disorder with the spasticity in the lower extremities and the upper extremities, which is moderated by the baclofen infusion. Her blood pressure is 112/42 and heart rate is 81. She has pain in her neck, which is constantly moving and in spasm. Tenderness posteriorly along the vertebral prominence. Deep tendon reflexes are brisk in the upper and lower extremities. IMPRESSION: 1. Cerebral palsy with chronic spasticity. 2. Cervical radiculopathy. 3. Management of intrathecal infusion pump with refill and reprogramming. [address] [address] PAIN MANAGEMENT CONSULTATION Name: SJUEY WILLIAM Room #: REG [facility]#: [id number] Admission: 05/03/19 Attend Phys: Clifford Kunz MD Discharge: Date of : 72 Report #: [id number] PROCEDURE: Refill and reprogramming, intrathecal pump. The skin was prepped with ChloraPrep and a 22-gauge non-coring needle advanced into the intrathecal pump. Old medication was removed and discarded. Pump was then refilled with a combination of baclofen and fentanyl. Reprogramming session was performed. There were no changes in her daily medicine. Reprogramming session information was checked and the copy provided to the patient and she was discharged in a good condition. A followup is scheduled sometime before 07/31/2019 for her next refill. By: [id number] Clifford Kunz MD /nt
[2019-05-03 11:35] VITALS: BP 111/42
--- NOTE | 2019-05-03 11:40 | NUR ---
Pain Clinic Assessment: 1. History of Osteoarthritis: Not Applicable History of Rheumatoid Arthritis: Not Applicable 2. Height: 5 ft. 2 in. 157.5 cm. Weight: lb. oz. kg. Patient's BMI: 3. Vital Signs: BP: 111/42 Pulse: 81 Resp: 16 Temp: 02 Sat: 98 ECG Mon: 4. Pain Intensity: 4 5. Fall Risk: Dizziness: N Needs help standing or walking: N Fallen in the last 3 months: N Fall risk comments: has been falling but no dr 6. Patient on Blood Thinner: None 7. History of Hypertension: N 8. Opioid Therapy greater than 6 weeks: N Opiate Contract Signed: 9. Risk Assessment Tool Provided: mod-4 10. Functional Assessment Tool: 11. Recreational Drug Use: Never Drug Type: Tobacco Use: Never Smoker Tobacco Type: Amount or Packs/day: How Many Years: Alcohol Use: No Frequency: Quant:
== END | disposition home or self-care (01) ==
LOC: PAIN 06:57
DX: Z45.1 Encounter for adjustment and management of infusion pump (principal); G80.0 Spastic quadriplegic cerebral palsy; M54.12 Radiculopathy, cervical region; Z98.890 Other specified postprocedural states; Z79.899 Other long term (current) drug therapy; Z79.891 Long term (current) use of opiate analgesic; Z88.8 Allergy status to other drugs, medicaments and biological substances

== ENCOUNTER → 2019-05-14 | Outpatient (CLI) | payer OTHER, SELFPAY ==
[~2019-05-14] VITALS: Ht 157.5 cm; Wt 68.9 kg
--- NOTE | ~2019-05-14 | HPC ---
[facility] [place] [address] PAIN MANAGEMENT CONSULTATION Name: SUJEY WILLIAM Room #: REG [facility] EdnaReeceKimani#: [id number] Admission: 05/14/19 Attend Phys: Clifford Kunz MD Discharge: Date of : 72 Report #: [id number] THIS REPORT FOR: cc: Clifford Baldwin MD, Richard C. MD Morgan, Richard L. MD ~ THIS REPORT FOR: //name// CC: Clifford Baldwin MD DATE OF SERVICE: 05/14/2019 Followup visit for cervical radiculopathy, bilateral. The patient is here today for another cervical epidural injection. Her pain continues to be quite severe. She scores it today prior to her injection as a 5/10, although it can extend to a 9. Pain radiates into both arms. She has spasticity related to her cerebral palsy. Her neck is in constant motion. She has had a previous anterior cervical diskectomy and fusion. We discussed the possibility of another MRI. This would require sedation. I do not think we could get a good study without it. We may also have interference from ACDF; anterior cervical diskectomy and fusion. We may want to go ahead and treat her for pain today and then assess her need for an MRI following her response to the injection. She has some oral baclofen. I refilled her pump on 05/02/2018, but we wanted to have some backup medication if necessary. PHYSICAL EXAMINATION: She is her usual outgoing, bubbly, happy self. Blood pressure 102/69, heart rate 79, respirations 16. She has quite a bit of spasticity and chronic choreiform like movements of her neck. She has tenderness bilaterally of the cervical spine. Pain with forward flexion and extension is noted. Extension reproduces radicular symptoms into the arms in the C6-C7 distribution. IMPRESSION: Cervical radiculopathy. PROCEDURE: Cervical epidural injection C6-C7 under fluoroscopic guidance. She was taken to fluoroscopic suite. She was placed prone, skin prepped with ChloraPrep. Skin anesthetized over the C6-C7 interspace. A 20-gauge Tuohy epidural needle was advanced in the epidural space with loss of resistance technique. There was no blood or CSF aspirated. 1 mL of Omnipaque injected. Good spread of dye observed into the epidural space followed by 3 mL of 0.5% [address] [address] PAIN MANAGEMENT CONSULTATION Name: SUJEY WILLIAM Room #: REG [facility] Pagan#: [id number] Admission: 05/14/19 Attend Phys: Clifford Kunz MD Discharge: Date of : 72 Report #: [id number] lidocaine mixed with 80 mg of triamcinolone. She tolerated the procedure well and was observed for 45 minutes and discharged. Follow up as needed. I did find after her discharge an MRI, which is from [facility] in [place], [place] performed on 10/13/2016. It is nearly 2-1/2 to 3 years old. It did show at that time neural foraminal narrowing bilaterally, particularly severe at C5-C6 and C6-C7. This would be a reasonable area of her injection today. No opioids were prescribed for her, but I did prescribe oral baclofen for her to have on hand in case something happens to her pump, a small emergency prescription. By: [id number] Clifford Kuzn MD /nt
[2019-05-14 11:01] VITALS: BP 102/69
--- NOTE | 2019-05-14 11:16 | NUR ---
Pain Clinic Assessment: 1. History of Osteoarthritis: NECK THORACIC History of Rheumatoid Arthritis: Not Applicable 2. Height: 5 ft. 2 in. 157.5 cm. Weight: 151.8 lb. oz. 68.856 kg. Patient's BMI: 27.8 3. Vital Signs: BP: 102/69 Pulse: 79 Resp: 16 Temp: 02 Sat: 98 ECG Mon: 4. Pain Intensity: 5 5. Fall Risk: Dizziness: N Needs help standing or walking: N Fallen in the last 3 months: N Fall risk comments: has been falling but no dr 6. Patient on Blood Thinner: None 7. History of Hypertension: N 8. Opioid Therapy greater than 6 weeks: N Opiate Contract Signed: 9. Risk Assessment Tool Provided: mod-4 10. Functional Assessment Tool: 11. Recreational Drug Use: Never Drug Type: Tobacco Use: Never Smoker Tobacco Type: Amount or Packs/day: How Many Years: Alcohol Use: No Frequency: Quant:
== END | disposition home or self-care (01) ==
LOC: PAIN 06:54
DX: M54.12 Radiculopathy, cervical region (principal); G89.29 Other chronic pain; G80.1 Spastic diplegic cerebral palsy; Z98.890 Other specified postprocedural states; Z79.899 Other long term (current) drug therapy; Z88.8 Allergy status to other drugs, medicaments and biological substances

== ENCOUNTER → 2019-06-27 | Outpatient (CLI) | payer OTHER, SELFPAY ==
[~2019-06-27] VITALS: Ht 157.5 cm; Wt 68.0 kg
[~2019-06-27] MED LIST changes: +OMEPRAZOLE 20 M20 M1 PO
== END ==
LOC: MRI 08:49
DX: M47.22 Other spondylosis with radiculopathy, cervical region (principal); M48.02 Spinal stenosis, cervical region
CPT/HCPCS: 62110; 62900; 70005

== ENCOUNTER → 2019-08-02 | Outpatient (CLI) | payer OTHER, SELFPAY ==
[~2019-08-02] VITALS: Ht 157.5 cm; Wt 69.9 kg
[~2019-08-02] MED LIST changes: +HYDROCODON-ACE1 EAC7 PO
--- NOTE | ~2019-08-02 | HPC ---
[facility] [address] [address] PAIN MANAGEMENT CONSULTATION Name: SUJEY WILLIAM Room #: REG RADHA WolfKimani#: [id number] Admission: 08/02/19 Attend Phys: Clifford Kunz MD Discharge: Date of : 72 Report #: [id number] THIS REPORT FOR: cc: [facility] - Family physician unknown FAM - Family physician unknown Clifford Kunz MD ~ CC: [facility] unknown Clifford Kunz DATE OF SERVICE: 08/02/2019 Followup visit for chronic pain and spasticity and refill of intrathecal infusion pump. The patient is here today with renewal of medication and her intrathecal pump. She has a combination of medications currently infusing including baclofen and fentanyl. Her pain medication and spasticity medications are working fairly well, but she has new onset arm pain. Pain is bilateral. I was concerned because of her spasticity that we had difficulty with assessing. I want her to see Dr. Mina Jones. She saw Daniela Sandoval in the clinic. Daniela reviewed her symptoms and physical exam and determined that there may be carpal tunnel. She sent her to Dr. Delmer Perez who confirmed this with EMG and she is scheduled for carpal tunnel release in the upcoming week with Dr. Jones. Overall, today, she scores her pain at a level of 8/10. She describes it as an aching sensation. It radiates into both arms with numbness and tingling. PQRS review is positive for carpal tunnel syndrome and spondylosis of the cervical and thoracic spine. She has a BMI of 28, blood pressure 122/91, heart rate 89, respirations 16, pain intensity 8/10. She has no dizziness, but because of her spasticity she is a fall risk and has fallen within the last 3 months. No injuries noted. She is not on a blood thinner. She has a history of hypertension and is under treatment. All medications were reviewed and reconciled. Those include omeprazole, baclofen oral p.r.n., gabapentin, estradiol, Singulair, MiraLax, Effexor, clonazepam, plain Tylenol and Cymbalta. PHYSICAL EXAMINATION: Vital signs are as noted above in the PQRS review. She is pleasant, alert and oriented, outgoing as she normally is in the clinic. She has constant spastic movements of her arms and neck. She has some dysarthria. Pain in the neck is noted with diffuse myofascial tenderness. Fair amount of spasticity. Increased pain with neck extension and flexion is noted. 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 IMPRESSION: 1. Chronic cervical pain with radiculopathy. 2. Evidence of carpal tunnel by EMG, surgery planned. [facility] [address] [place] [address] PAIN MANAGEMENT CONSULTATION Name: SUJEY WILLIAM Room #: REG RADHA Pagan#: [id number] Admission: 08/02/19 Attend Phys: Clifford Kunz MD Discharge: Date of : 72 Report #: [id number] 3. Cerebral palsy. PLAN: Refill and reprogram of intrathecal infusion pump. PROCEDURE: Skin prepped with ChloraPrep. A 22-gauge non-coring needle advanced in the pump. Old medication removed and discarded per protocol. Pump refilled with 39.5 mL of baclofen and fentanyl. Reprogramming allows for 400 mg of baclofen and 120 mcg of fentanyl per day. Her next refill is scheduled before 11/03/2019 when her alarm will go off at 2 mL. Programming information was checked by myself and the nurse, copy provided to the patient. She was discharged with followup plans for her next refill as necessary. Surgery next week. By: [id number] Clifford Kunz MD /nt
[2019-08-02 14:06] VITALS: BP 122/91
--- NOTE | 2019-08-02 14:12 | NUR ---
Pain Clinic Assessment: 1. History of Osteoarthritis: NECK THORACIC History of Rheumatoid Arthritis: Not Applicable 2. Height: 5 ft. 2 in. 157.5 cm. Weight: 154.0 lb. oz. 69.854 kg. Patient's BMI: 28.2 3. Vital Signs: BP: 122/91 Pulse: 89 Resp: 16 Temp: 02 Sat: 100 ECG Mon: 4. Pain Intensity: 8 5. Fall Risk: Dizziness: N Needs help standing or walking: N Fallen in the last 3 months: N Fall risk comments: has been falling but no dr 6. Patient on Blood Thinner: None 7. History of Hypertension: N 8. Opioid Therapy greater than 6 weeks: N Opiate Contract Signed: 9. Risk Assessment Tool Provided: mod-4 10. Functional Assessment Tool: 11. Recreational Drug Use: Never Drug Type: Tobacco Use: Never Smoker Tobacco Type: Amount or Packs/day: How Many Years: Alcohol Use: No Frequency: Quant:
== END | disposition home or self-care (01) ==
LOC: PAIN 08:02
DX: Z45.1 Encounter for adjustment and management of infusion pump (principal); M47.22 Other spondylosis with radiculopathy, cervical region; G89.29 Other chronic pain; G80.9 Cerebral palsy, unspecified; I10 Essential (primary) hypertension; Z98.890 Other specified postprocedural states; Z79.899 Other long term (current) drug therapy

== ENCOUNTER → 2019-09-20 | Outpatient (CLI) | payer OTHER, SELFPAY ==
[~2019-09-20] VITALS: Ht 157.5 cm; Wt 70.3 kg
[2019-09-20 08:32] VITALS: BP 119/85
--- NOTE | 2019-09-20 08:39 | NUR ---
Pain Clinic Assessment: 1. History of Osteoarthritis: NECK THORACIC History of Rheumatoid Arthritis: Not Applicable 2. Height: 5 ft. 2 in. 157.5 cm. Weight: 155.0 lb. oz. 70.308 kg. Patient's BMI: 28.3 3. Vital Signs: BP: 119/85 Pulse: 99 Resp: 18 Temp: 02 Sat: 99 ECG Mon: 4. Pain Intensity: 5 5. Fall Risk: Dizziness: N Needs help standing or walking: N Fallen in the last 3 months: N Fall risk comments: has been falling but no dr 6. Patient on Blood Thinner: None 7. History of Hypertension: N 8. Opioid Therapy greater than 6 weeks: N Opiate Contract Signed: 9. Risk Assessment Tool Provided: mod-4 10. Functional Assessment Tool: 11. Recreational Drug Use: Never Drug Type: Tobacco Use: Never Smoker Tobacco Type: Amount or Packs/day: How Many Years: Alcohol Use: No Frequency: Quant:
--- NOTE | 2019-09-21 15:51 | HPC ---
[facility] [place] [address] [place] [address] PAIN MANAGEMENT CONSULTATION Name: SUJEY WILLIAM Room #: REG RADHA Wolf.#: [id number] Admission: 09/20/19 Attend Phys: Clifford Kunz MD Discharge: Date of : 72 Report #: [id number] THIS REPORT FOR: cc: FAM - Family physician unknown FAM - Family physician unknown Clifford Kunz MD ~ CC: HUONG PEREZ MD [facility] unknown Mina Kunz DATE OF SERVICE: 09/20/2019 The patient returns to pain clinic today scoring her pain at a high level. She has neuropathic symptoms into both hands. She has not affected elsewhere. Her feet are fine. She describes it as a burning, numbness, tingling, sharp aching sensation that follows closely the dermatomal distribution of C6-C7. She has been experiencing these symptoms now for months. I had an MRI performed and reviewed the films. I also asked Dr. Jones and Daniela Sandoval to review the films. The consult is on the chart. It was their feeling that given the fact that there was spinal fluid around the cord and despite that postoperative changes that this might be carpal tunnel syndrome. Consult with Dr. Huong Perez then yielded the diagnosis of carpal tunnel syndrome, which then was followed by Surgery. Unfortunately, she is now for several weeks from surgery and her symptoms continue unabated. They are clearly radicular in their distribution in the hands and she is uncomfortable calling our office frequently with request to provide relief. We have tried medications in the past, she has side effects. Her cerebral palsy and constant movement disorder make her prone to spasticity and muscle pain as well as neuropathic pain. MEDICATIONS: Baclofen, gabapentin, estradiol, Singulair, MiraLax, Effexor, clonazepam, Tylenol and Cymbalta. We have adjusted doses of her neuropathic medicines without benefit. PHYSICAL EXAMINATION: GENERAL: She is pleasant, alert and oriented, wearing a mask. VITAL SIGNS: Her blood pressure is 119/85, heart rate 99, respirations 18. CHEST: Clear. CARDIAC: Rhythm is regular. MUSCULOSKELETAL: She has constant movement disorder. There is spasticity in the upper and lower extremities. Examination of the neck reveals pain with motion, flexion and extension. There is a scar in front from previous anterior cervical diskectomy. She has generalized weakness of the upper extremities with [facility] [address] [place] [address] PAIN MANAGEMENT CONSULTATION Name: SUJEY WILLIAM Room #: REG [facility] Latasha#: [id number] Admission: 09/20/19 Attend Phys: Clifford Kunz MD Discharge: Date of : 72 Report #: [id number] no focal weakness noted. 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 She has diminished sensation that is more prominent in the C6-C7 distribution. Deep tendon reflexes are trace to 1+ at biceps, triceps, brachioradialis and 1-2+ in the lower extremities. IMPRESSION: Cervicalgia with radicular pain. PROCEDURE RECOMMENDATIONS: Cervical epidural injection under fluoroscopic guidance. PROCEDURE: She was taken to fluoroscopic suite, placed prone, skin prepped with ChloraPrep. Skin anesthetized over C7-T1. A 20-gauge Tuohy epidural needle advanced in the epidural space with loss of resistance technique. There was no blood or CSF aspirated. A 1 mL of Omnipaque was injected. Good spread of dye observed in the cephalad direction. It was then followed by 3 mL of 0.5% lidocaine mixed with 80 mg of triamcinolone. She tolerated the procedure well and was observed for a short time and discharged. Followup visit planned in the pain clinic for repeat injections as necessary and if they prove helpful. We will be careful about over utilizing injections going forward. <ELECTRONICALLY SIGNED> By: Clifford Kunz MD 09/21/19 [id number] [id number] Cliffrod Kunz MD /nt
== END | disposition home or self-care (01) ==
LOC: PAIN 08:23
PROVIDERS: ATTEND Anesthesiology Pain Medicine
DX: M54.16 Radiculopathy, lumbar region (principal); Z87.891 Personal history of nicotine dependence; Z79.899 Other long term (current) drug therapy

== ENCOUNTER → 2019-11-05 | Outpatient (CLI) | payer OTHER, SELFPAY ==
[~2019-11-05] VITALS: Ht 157.5 cm; Wt 69.9 kg
--- NOTE | ~2019-11-05 | HPC ---
[facility] [place] [address] PAIN MANAGEMENT CONSULTATION Name: SUJEY WILLIAM Room #: REG RADHA Wolf.#: [id number] Admission: 11/05/19 Attend Phys: Clifford Kunz MD Discharge: Date of : 72 Report #: [id number] THIS REPORT FOR: cc: JANAE BLOOM Physician not on staff Clifford Kunz MD ~ CC: JANAE Jones MD Physician staff Clifford Kunz DATE OF SERVICE: 11/05/2019 Followup visit for management of chronic spasticity and pain with intrathecal pump and a small amount of supplementary oral medication using baclofen. The patient returns to pain clinic today and is doing well. I have added gabapentin dose to take her to 3200 mg per day and this seems to have helped her neuropathic pain. She had substantial amounts of neuropathic pain over the course of the spring months and she was thoroughly evaluated. No surgical intervention was suggested. She did have carpal tunnel surgery, which is now recovered. Perhaps it was carpal tunnel surgery all along. Some of her symptoms sounded like radiculopathy. Pain intensity is a 4. She complains of spondylosis of the thoracic spine. Her BMI is 28.2, blood pressure 131/95, heart rate 81, respirations 18. She has had no falls. No blood thinners, no history of hypertension, no opioids. Functional assessment score is 38. She denies tobacco and alcohol. IMPRESSION: 1. Spasticity related to cerebral palsy and chronic cervicalgia. 2. Lumbar radiculopathy treated with cervical epidural injection, excellent response in August. PROCEDURE: Refill and reprogramming of intrathecal infusion pump. Skin was prepped with ChloraPrep. Skin anesthetized and a 22-gauge non-coring needle advanced in pump. Old medication removed and discarded per protocol. Pump refilled with baclofen and fentanyl and reprogramming session performed with baclofen at 400 mcg a day, fentanyl 120 mcg per day. Her ALFREDO is 01/27/2025. Her next refill is 02/06/2020. [address] [address] PAIN MANAGEMENT CONSULTATION Name: SHREYASSUJEY Walters Room #: REG [facility]#: [id number] Admission: 11/05/19 Attend Phys: Clifford Kunz MD Discharge: Date of : 72 Report #: [id number] Programming information was checked by myself and the nurse, copy given to the patient for discharge and a followup visit scheduled in January. By: [id number] Clifford Kunz MD /nt
[2019-11-05 12:27] VITALS: BP 131/95
--- NOTE | 2019-11-05 12:32 | NUR ---
Pain Clinic Assessment: 1. History of Osteoarthritis: NECK THORACIC History of Rheumatoid Arthritis: Not Applicable 2. Height: 5 ft. 2 in. 157.5 cm. Weight: 154.0 lb. oz. 69.854 kg. Patient's BMI: 28.2 3. Vital Signs: BP: 131/95 Pulse: 81 Resp: 18 Temp: 02 Sat: 98 ECG Mon: 4. Pain Intensity: 4 5. Fall Risk: Dizziness: N Needs help standing or walking: N Fallen in the last 3 months: N Fall risk comments: has been falling but no dr 6. Patient on Blood Thinner: None 7. History of Hypertension: N 8. Opioid Therapy greater than 6 weeks: N Opiate Contract Signed: 9. Risk Assessment Tool Provided: mod-4 10. Functional Assessment Tool: 11. Recreational Drug Use: Never Drug Type: Tobacco Use: Never Smoker Tobacco Type: Amount or Packs/day: How Many Years: Alcohol Use: No Frequency: Quant:
== END | disposition home or self-care (01) ==
LOC: PAIN 06:51
PROVIDERS: ATTEND Anesthesiology Pain Medicine
DX: M54.16 Radiculopathy, lumbar region (principal); M54.2 Cervicalgia; Z79.899 Other long term (current) drug therapy; Z87.440 Personal history of urinary (tract) infections; Z88.8 Allergy status to other drugs, medicaments and biological substances; Z98.890 Other specified postprocedural states

== ENCOUNTER → 2020-01-17 | Outpatient (CLI) | payer OTHER, SELFPAY ==
[~2020-01-17] VITALS: Ht 157.5 cm; Wt 69.5 kg
[~2020-01-17] MED LIST changes: +GABAPENTIN800 M1 PO
--- NOTE | ~2020-01-17 | HPC ---
[facility] [place] [address] [place] [address] PAIN MANAGEMENT CONSULTATION Name: SUJEY WILLIAM Room #: REG RADHA Kimani.#: [id number] Admission: 01/17/20 Attend Phys: Clifford Kunz MD Discharge: Date of : 72 Report #: [id number] CC: JANAE BLOOM Physician staff Clifford Kunz DATE OF SERVICE: 01/17/2020 CHIEF COMPLAINT: Myofascial pain along the right side. The patient is here today complaining of myofascial pain of a severe nature. She has chronic spasticity related to cerebral palsy. This pain is more localized, may be related to activities. She was wondering if there is anything we can do to help it. She has an intrathecal pump, which infuses medication for pain and for spasticity, currently infusing baclofen and fentanyl. I think we will leave her dose in the pump stable. She also has in the past taken hydrocodone, which she has. This pain has not been responsive to hydrocodone at this point in time. She has had injections as well including cervical epidural injections in the past, but this does not appear to be radicular pain on exam. MEDICATIONS: Baclofen, gabapentin, estradiol, Singulair, MiraLax, Effexor, clonazepam, Tylenol and Cymbalta. ALLERGIES: MORPHINE. PHYSICAL EXAMINATION: GENERAL: She is in her usual pleasant ___ alert and oriented, no signs of depression, anxiety or overmedication. VITAL SIGNS: Blood pressure is 115/76, heart rate 81, respirations 16, O2 sat 99. She is afebrile. CHEST: Clear to auscultation. CARDIAC: Rhythm is regular. MUSCULOSKELETAL: Examination of the spine reveals normal alignment. There is tension along the spine, particularly higher in the cervical region. She has restricted range of motion of the cervical spine. Tenderness along the thoracic spine and there is a ropey like myofascial spasm along the paravertebral muscles on the right extending down through the latissimus dorsi and deeper along the quadratus lumborum. She is slightly rotated. RECOMMENDATIONS: Given signs of myofascial pain, I offered her trigger point injections today with bupivacaine 0.25%. We will see if this can break the cycle of spasm. If necessary, we could add an oral muscle relaxant, but I prefer not to do that at this time. PROCEDURE: Trigger point injection for muscle groups. DESCRIPTION OF PROCEDURE: After informed consent, she was placed in the seated position, skin was prepped with ChloraPrep widely. I used a 27-gauge needle to perform the injections. Identification of tender muscles was then performed. Tenderness just posterior to the external obliques in the area of the quadratus lumborum, the longissimus thoracis, iliocostalis lumborum and the overlying latissimus dorsi was identified. Each of these muscle groups were then broadly injected with medication. I used 2 mL increments with a total of 10 mL injection of several identified tensed trigger points. She tolerated the procedure well. Gentle massage was provided afterwards, and she was discharged in good condition without difficulty. Results will hopefully be sustained. I will see her back as necessary for pump management. By: [id number] Clifford Kunz MD /nt
[2020-01-17 13:39] VITALS: BP 115/76
--- NOTE | 2020-01-17 14:06 | NUR ---
Pain Clinic Assessment: 1. History of Osteoarthritis: NECK THORACIC History of Rheumatoid Arthritis: Not Applicable 2. Height: 5 ft. 2 in. 157.5 cm. Weight: 153.2 lb. oz. 69.491 kg. Patient's BMI: 28.0 3. Vital Signs: BP: 115/76 Pulse: 81 Resp: 16 Temp: 02 Sat: 99 ECG Mon: 4. Pain Intensity: 7 5. Fall Risk: Dizziness: N Needs help standing or walking: N Fallen in the last 3 months: Y Fall risk comments: has been falling but no dr 6. Patient on Blood Thinner: None 7. History of Hypertension: N 8. Opioid Therapy greater than 6 weeks: Y Opiate Contract Signed: 9. Risk Assessment Tool Provided: mod-4 10. Functional Assessment Tool: 11. Recreational Drug Use: Never Drug Type: Tobacco Use: Never Smoker Tobacco Type: Amount or Packs/day: How Many Years: Alcohol Use: No Frequency: Quant:
== END | disposition home or self-care (01) ==
LOC: PAIN 06:57
PROVIDERS: ATTEND Anesthesiology Pain Medicine
DX: M79.18 Myalgia, other site (principal); R25.2 Cramp and spasm; G80.9 Cerebral palsy, unspecified; Z98.890 Other specified postprocedural states; Z79.899 Other long term (current) drug therapy; Z79.891 Long term (current) use of opiate analgesic; Z88.8 Allergy status to other drugs, medicaments and biological substances

== ENCOUNTER → 2020-02-04 | Outpatient (CLI) | payer OTHER, SELFPAY ==
[~2020-02-04] VITALS: Ht 157.5 cm; Wt 68.6 kg
[2020-02-04 13:11] VITALS: BP 110/70
--- NOTE | 2020-02-04 13:46 | NUR ---
Pain Clinic Assessment: 1. History of Osteoarthritis: NECK THORACIC History of Rheumatoid Arthritis: Not Applicable 2. Height: 5 ft. 2 in. 157.5 cm. Weight: 151.2 lb. oz. 68.584 kg. Patient's BMI: 27.6 3. Vital Signs: BP: 110/70 Pulse: 86 Resp: 16 Temp: 02 Sat: 100 ECG Mon: 4. Pain Intensity: 6 5. Fall Risk: Dizziness: N Needs help standing or walking: N Fallen in the last 3 months: N Fall risk comments: has been falling but no dr 6. Patient on Blood Thinner: None 7. History of Hypertension: N 8. Opioid Therapy greater than 6 weeks: Y Opiate Contract Signed: 9. Risk Assessment Tool Provided: mod-4 10. Functional Assessment Tool: 11. Recreational Drug Use: Never Drug Type: Tobacco Use: Never Smoker Tobacco Type: Amount or Packs/day: How Many Years: Alcohol Use: No Frequency: Quant:
== END | disposition home or self-care (01) ==
LOC: PAIN 06:55
PROVIDERS: ATTEND Anesthesiology Pain Medicine
DX: Z45.1 Encounter for adjustment and management of infusion pump (principal); G89.29 Other chronic pain; R25.2 Cramp and spasm; G80.9 Cerebral palsy, unspecified; Z98.890 Other specified postprocedural states; Z79.891 Long term (current) use of opiate analgesic; Z88.8 Allergy status to other drugs, medicaments and biological substances

== ENCOUNTER → 2020-03-31 | Outpatient (CLI) | payer OTHER, SELFPAY ==
[~2020-03-31] VITALS: Ht 157.5 cm; Wt 69.9 kg
[2020-03-31 09:08] VITALS: BP 111/72
--- NOTE | 2020-03-31 09:23 | NUR ---
Pain Clinic Assessment: 1. History of Osteoarthritis: NECK THORACIC History of Rheumatoid Arthritis: Not Applicable 2. Height: 5 ft. 2 in. 157.5 cm. Weight: 154.2 lb. oz. 69.945 kg. Patient's BMI: 28.2 3. Vital Signs: BP: 111/72 Pulse: 82 Resp: 16 Temp: 02 Sat: 100 ECG Mon: 4. Pain Intensity: 8 5. Fall Risk: Dizziness: Y Needs help standing or walking: N Fallen in the last 3 months: Y Fall risk comments: has been falling but no dr 6. Patient on Blood Thinner: None 7. History of Hypertension: N 8. Opioid Therapy greater than 6 weeks: Y Opiate Contract Signed: 9. Risk Assessment Tool Provided: mod-4 10. Functional Assessment Tool: 11. Recreational Drug Use: Never Drug Type: Tobacco Use: Never Smoker Tobacco Type: Amount or Packs/day: How Many Years: Alcohol Use: No Frequency: Quant:
== END | disposition home or self-care (01) ==
LOC: PAIN 06:57
PROVIDERS: ATTEND Anesthesiology Pain Medicine
DX: Z45.1 Encounter for adjustment and management of infusion pump (principal); G89.29 Other chronic pain; G80.1 Spastic diplegic cerebral palsy; Z98.890 Other specified postprocedural states; Z79.891 Long term (current) use of opiate analgesic; Z88.8 Allergy status to other drugs, medicaments and biological substances

== ENCOUNTER → 2020-05-07 | Outpatient (CLI) | payer OTHER, SELFPAY ==
[~2020-05-07] VITALS: Ht 157.5 cm; Wt 69.9 kg
[2020-05-07 11:25] VITALS: BP 134/74
--- NOTE | 2020-05-07 11:40 | NUR ---
Pain Clinic Assessment: 1. History of Osteoarthritis: NECK THORACIC History of Rheumatoid Arthritis: Not Applicable 2. Height: 5 ft. 2 in. 157.5 cm. Weight: 154.0 lb. oz. 69.854 kg. Patient's BMI: 28.2 3. Vital Signs: BP: 134/74 Pulse: 77 Resp: 16 Temp: 02 Sat: 95 ECG Mon: 4. Pain Intensity: 7 5. Fall Risk: Dizziness: N Needs help standing or walking: N Fallen in the last 3 months: Y Fall risk comments: has been falling but no dr 6. Patient on Blood Thinner: None 7. History of Hypertension: N 8. Opioid Therapy greater than 6 weeks: Y Opiate Contract Signed: 9. Risk Assessment Tool Provided: mod-4 10. Functional Assessment Tool: 11. Recreational Drug Use: Never Drug Type: Tobacco Use: Never Smoker Tobacco Type: Amount or Packs/day: How Many Years: Alcohol Use: No Frequency: Quant:
== END | disposition home or self-care (01) ==
LOC: PAIN 05-05 07:06
PROVIDERS: ATTEND Anesthesiology Pain Medicine
DX: Z45.1 Encounter for adjustment and management of infusion pump (principal); G89.29 Other chronic pain; G80.9 Cerebral palsy, unspecified; R25.2 Cramp and spasm; Z98.890 Other specified postprocedural states; Z79.899 Other long term (current) drug therapy; Z79.891 Long term (current) use of opiate analgesic; Z88.8 Allergy status to other drugs, medicaments and biological substances

== ENCOUNTER → 2020-07-24 | Outpatient (CLI) | payer OTHER, SELFPAY ==
[~2020-07-24] VITALS: Ht 157.5 cm; Wt 71.7 kg
[2020-07-24 13:49] VITALS: BP 155/98
--- NOTE | 2020-07-24 13:53 | NUR ---
Pain Clinic Assessment: 1. History of Osteoarthritis: NECK THORACIC History of Rheumatoid Arthritis: Not Applicable 2. Height: 5 ft. 2 in. 157.5 cm. Weight: 158.0 lb. oz. 71.668 kg. Patient's BMI: 28.9 3. Vital Signs: BP: 155/98 Pulse: 98 Resp: 16 Temp: 02 Sat: 98 ECG Mon: 4. Pain Intensity: 2 5. Fall Risk: Dizziness: N Needs help standing or walking: N Fallen in the last 3 months: N Fall risk comments: has been falling but no dr 6. Patient on Blood Thinner: None 7. History of Hypertension: N 8. Opioid Therapy greater than 6 weeks: Y Opiate Contract Signed: 9. Risk Assessment Tool Provided: mod-4 10. Functional Assessment Tool: 11. Recreational Drug Use: Never Drug Type: Tobacco Use: Never Smoker Tobacco Type: Amount or Packs/day: How Many Years: Alcohol Use: No Frequency: Quant:
== END | disposition home or self-care (01) ==
LOC: PAIN 11:28
PROVIDERS: ATTEND Anesthesiology Pain Medicine
DX: Z45.1 Encounter for adjustment and management of infusion pump (principal); R25.2 Cramp and spasm; G80.9 Cerebral palsy, unspecified; Z98.890 Other specified postprocedural states; Z79.899 Other long term (current) drug therapy; Z79.891 Long term (current) use of opiate analgesic; Z88.8 Allergy status to other drugs, medicaments and biological substances

== ENCOUNTER → 2020-08-28 | Outpatient (CLI) | payer OTHER, SELFPAY ==
[~2020-08-28] VITALS: Ht 157.5 cm; Wt 71.3 kg
[2020-08-28 10:08] VITALS: BP 138/67
--- NOTE | 2020-08-28 10:10 | NUR ---
Pain Clinic Assessment: 1. History of Osteoarthritis: NECK THORACIC History of Rheumatoid Arthritis: Not Applicable 2. Height: 5 ft. 2 in. 157.5 cm. Weight: 157.2 lb. oz. 71.305 kg. Patient's BMI: 28.7 3. Vital Signs: BP: 138/67 Pulse: 86 Resp: 16 Temp: 02 Sat: 93 ECG Mon: 4. Pain Intensity: 8 5. Fall Risk: Dizziness: Y Needs help standing or walking: N Fallen in the last 3 months: Y Fall risk comments: PT REPORTS MILD DIZZINESS AND HAS SOME SADNESS DUE TO MARITAL CONFLICT. DENIES ABUSE. FELL LAST NIGHT AND HIT HER HEAD AND LEFT ARM. 6. Patient on Blood Thinner: None 7. History of Hypertension: N 8. Opioid Therapy greater than 6 weeks: Y Opiate Contract Signed: 9. Risk Assessment Tool Provided: mod-4 10. Functional Assessment Tool: 11. Recreational Drug Use: Never Drug Type: Tobacco Use: Never Smoker Tobacco Type: Amount or Packs/day: How Many Years: Alcohol Use: No Frequency: Quant:
== END ==
LOC: PAIN 07:03
PROVIDERS: ATTEND Anesthesiology Pain Medicine
DX: G89.29 Other chronic pain (principal); G80.1 Spastic diplegic cerebral palsy; Z88.5 Allergy status to narcotic agent; Z68.28 Body mass index [BMI] 28.0-28.9, adult; Z79.891 Long term (current) use of opiate analgesic; Z79.899 Other long term (current) drug therapy

== ENCOUNTER → 2020-10-09 | Outpatient (CLI) | payer OTHER, SELFPAY ==
[~2020-10-09] VITALS: Ht 157.5 cm; Wt 69.1 kg
[2020-10-09 09:47] VITALS: BP 139/85
--- NOTE | 2020-10-09 10:23 | NUR ---
Pain Clinic Assessment: 1. History of Osteoarthritis: NECK THORACIC History of Rheumatoid Arthritis: Not Applicable 2. Height: 5 ft. 2 in. 157.5 cm. Weight: 152.4 lb. oz. 69.128 kg. Patient's BMI: 27.9 3. Vital Signs: BP: 139/85 Pulse: 88 Resp: 16 Temp: 02 Sat: 100 ECG Mon: 4. Pain Intensity: 6 5. Fall Risk: Dizziness: N Needs help standing or walking: N Fallen in the last 3 months: Y Fall risk comments: PT REPORTS MILD DIZZINESS AND HAS SOME SADNESS DUE TO MARITAL CONFLICT. DENIES ABUSE. FELL LAST NIGHT AND HIT HER HEAD AND LEFT ARM. 6. Patient on Blood Thinner: None 7. History of Hypertension: N 8. Opioid Therapy greater than 6 weeks: Y Opiate Contract Signed: 9. Risk Assessment Tool Provided: mod-4 10. Functional Assessment Tool: 11. Recreational Drug Use: Never Drug Type: Tobacco Use: Never Smoker Tobacco Type: Amount or Packs/day: How Many Years: Alcohol Use: No Frequency: Quant:
== END | disposition home or self-care (01) ==
LOC: PAIN 06:55
PROVIDERS: ATTEND Anesthesiology Pain Medicine
DX: Z45.1 Encounter for adjustment and management of infusion pump (principal); G80.9 Cerebral palsy, unspecified; M54.12 Radiculopathy, cervical region; G89.29 Other chronic pain; Z98.890 Other specified postprocedural states; Z79.899 Other long term (current) drug therapy